=== PATIENT | male | born 1995 | race Caucasian/White ===

== ENCOUNTER 2016-09-10 10:59 | Emergency (ER) | payer BC ==
--- NOTE | 2016-09-17 08:15 | ER ---
ADMIT: 09/10/2016 RM/LOC: ER [facility] MR#: [id number] [address] [id number] [place] [id number] [place] [address] Emergency Room Report SEX: M AGE: 21 : 1995 DATE: 09/10/2016 HISTORY OF PRESENT ILLNESS: The patient is a 21-year-old male, presents to the emergency room complaining of 5 hours of vomiting. He says he has generalized abdominal pain. He said he ate something at [employer] that probably was the cause of what his symptoms are right now. He did drink alcohol last night 2 mixed drinks he is reporting. Denies drugs or alcohol. He looks like he could benefit from some fluids and was pretty distraught. PHYSICAL EXAMINATION: VITAL SIGNS: Blood pressure 137/68, heart rate is 75, respirations 16, temp is 98.0, and O2 sats 98%. GENERAL: He is alert. HEENT: Normal inspection. NECK: Supple. RESPIRATIONS: No distress CVS: Regular rate and rhythm. ABDOMEN: Generalized tenderness. BACK: Normal inspection. SKIN: Good color and turgor. EXTREMITIES: Well perfused. NEURO: Oriented x4. LABORATORY DATA: CBC within normal limits. Chemistry; CO2 of 21 with a glucose of 125. ETOH negative. Unable to get a UA back. I also canceled the drug UDS. The patient has received 2 L of fluids. CLINICAL IMPRESSION: Mild dehydration and dyspepsia. Follow up with primary provider. Clear liquids for the next 12 hours. Go home and rest. Tylenol or Motrin for pain control. BRENDA Hernandez / Sundeep Kingston MD / jillian JOB #: [id number] CC: Sundeep Kingston MD, Attending Physician Slim Blue MD, Family Physician
== END 2016-09-10 12:55 | disposition home or self-care (01) ==
LOC: ER 10:59
DX: E86.0 Dehydration (principal); R10.13 Epigastric pain